=== PATIENT | female | born 1970 | race Caucasian/White ===

== ENCOUNTER 2024-04-11 12:27 | Emergency (ER) | payer OTHER, SELFPAY ==
[2024-04-11 12:29] VITALS: BP 182/119
[2024-04-11 13:10] LABS: % Basophils 1.1 % (0-2); % Eosinophils 3.1 % (0-6); % Immature Granulocytes 0.2 % (0-0.5); % Lymphocytes 26.6 % (20.5-51.1); % Monocytes 7.4 % (1.7-9.3); % Neutrophils 61.6 % (42.2-75.2); Absolute Basophils 0.1 10^3/uL (0-0.2); Absolute Eosinophils 0.2 10^3/uL (0-0.7); Absolute Lymphocytes 1.4 10^3/uL (1.2-3.4); Absolute Monocytes 0.4 10^3/uL (0.1-0.6); Absolute Neutrophils 3.3 10^3/uL (1.4-6.5); Hematocrit 39.1 % (37.0-47.0); Hemoglobin 13.6 g/dL (12.0-16.0); Mean Corp Hgb Conc. 34.8 g/dL (33.0-37.0); Mean Corpuscular Volume 94.9 fL (81.0-99.0); Mean Platelet Volume 10.7 fL (7.4-10.4); Nucleated Red Blood Cells % 0 %; Platelet Count 219 10^3/uL (130-400); Red Blood Cell Count 4.12 10^6/uL (4.20-5.40); White Blood Cell Count 5.4 10^3/uL (4.8-10.8)
[2024-04-11 13:25] LABS: ALT (SGPT) 52 U/L (0-35); AST (SGOT) 44 U/L (14-36); Albumin 4.7 g/dl (3.5-5.0); Alkaline Phosphatase 78 U/L (38-126); Blood Urea Nitrogen 11 mg/dl (7-17); Calcium 10.1 mg/dl (8.4-10.2); Carbon Dioxide 29 mmol/L (22-30); Chloride 101 mmol/L (98-107); Glucose 157 mg/dl (70-99); Potassium 3.7 mmol/L (3.5-5.1); Sodium 140 mmol/L (135-145); Total Bilirubin 0.6 mg/dl (0.2-1.3); Total Protein 7.7 g/dl (6.3-8.2); eGFR > 60.00
[2024-04-11 13:35] LABS: Troponin I < 0.012 ng/ml
--- NOTE | 2024-04-11 16:13 | ED.GENMED ---
History of Present Illness
General
Chief Complaint: Breathing Problem
Time Seen by Provider: 04/11/24 15:47
Travel History
Have you had any contact with someone who has COVID-19?: No
Do you have any symptoms of coronavirus? Fever > 100 degrees, chills, cough, shortness of breath, sore throat, loss of taste or smell, muscle aches, or headache?: No
History of Present Illness
History of Present Illness:
53-year-old female with prior history of PE no longer on anticoagulants presents to the emergency department for evaluation of dizziness and extremity tingling/cool sensation ongoing for the past 2 to 3 days. She states she wakes up each day
feeling fine but the symptoms developed later in the day. She does wonder whether she could have issues with allergies given that new grass with hay was laid down outside of her home. She denies any nasal congestion but does report a headache and
left ear pain. Denies any coughing or chest pain. No fevers but has not had occasional sweats. No abnormal weight changes, nausea, or vomiting.
Past History
Past History
ED Past Medical History: Other (Single left upper lobe pulmonary embolus diagnosed on 07/29/2011)
Social History
Tobacco: Non-smoker
Alcohol: Occasional
Personal:
Family History
Family History: Negative Diabetes, Hypertension or CAD
Review of Systems
Review of Systems
Allergies reviewed?: Yes
All Other Systems: ROS reviewed and negative except as documented in HPI and ROS
Phy Exam
Physical Exam
Physical Exam:
GEN: Well appearing, NAD, WDWN
Eyes: PERRLA, EOMs intact, no scleral icterus
HENT: NCAT, oral mucosa moist
Lungs: CTAB, no wheezes, rales, rhonchi, normal chest wall excursion
Cardiac: RRR, no M/R/G, no peripheral edema. Radial pulses 2+ bilat
Abdomen: S, NT, ND, NABS, no masses or hepatosplenomegaly
Neuro: AO x 3, cranial nerves II through XII grossly intact, moves all extremities freely
MSK: No gross deformity or ecchymosis. No edema. No digital clubbing
Skin: No rashes, petechiae. Normal color, no pallor or jaundice.
Psych: Calm, cooperative, proper hygiene
Scores
Heart Failure Risk
Heart Failure Risk Score: Not Applicable
Course
Orders/Labs/Results
Orders:
Orders
04/11/24 12:32
ECG [Electrocardiogram (*1)] Urgent
Reason for Study: Vertigo / Dizzy
04/11/24 12:33
EKG- Treatment ONCE
04/11/24 12:59
Complete Blood Count/With Diff Urgent
Comprehensive Metabolic Panel Urgent
D-Dimer Urgent
Lyme Progressive Urgent
Comment: ADD ON
TSH Reflex To Free T4 Urgent
Comment: ADD
Troponin I Urgent
04/11/24 16:08
Add On- LAB Urgent
Tests Added?: TSH w reflex
04/11/24 16:42
Urinalysis Reflex To Culture Urgent
Date Specimen was Collected: 04/11/24
Time Specimen was Collected: 16:41
Urine Microscopic Reflex Cult Urgent
Urine Culture Urgent
LUBNA Source: U
Specimen Description:
Date Specimen was Collected: 04/11/24
Time Specimen was Collected: 16:41
04/11/24 17:09
Add On- LAB Urgent
Tests Added?: lyme progressive
Abnormal Lab Results
04/11/24 04/11/24
12:59 16:42
RBC 4.12 L 10^6/uL
(4.20-5.40)
MCH 33.0 H pg
(27.0-31.0)
MPV 10.7 H fL
(7.4-10.4)
Glucose 157 H mg/dl
(70-99)
AST 44 H U/L
(14-36)
ALT 52 H U/L
(0-35)
Leukocyte Esterase Rfl 1+ A
(Negative)
04/11/24 12:59
04/11/24 12:59
Vital Signs
Initial and Last Documented VS:
Initial Vital Signs
Temp Pulse Resp BP Pulse Ox
98.0 F 116 20 182/119 97
04/11/24 12:29 04/11/24 12:29 04/11/24 12:29 04/11/24 12:29 04/11/24 12:29
Last Documented Vital Signs
Temp Pulse Resp BP Pulse Ox
98.0 F 86 16 141/92 96
04/11/24 12:29 04/11/24 16:40 04/11/24 16:40 04/11/24 16:40 04/11/24 16:40
MDM/Problems Addressed
MDM/Problems Addressed:
Patient presents with quite vague symptoms, certainly could be allergic sinusitis given her reports of left ear pain and upper tooth pain, no fevers or purulent rhinorrhea to suggest acute bacterial rhinosinusitis. No focal neurologic deficits
suggestive of intracranial pathology warranting CT of the head. Will start the patient on a methylprednisolone taper dose for potential sinusitis, Lyme titers are pending
Comment
Comment:
EKG independently interpreted by me shows a normal sinus rhythm at a rate of [address] changes concerning for ischemia, QTc of 430
*Critical Care Note
Total Time (30-74mins, 75-104mins- exclusive of procedures): Not Applicable
ED Attending Note
-
Portions of this chart may have been created with voice recognition software.� Occasional wrong word or��sound alike� substitutions may have occurred due to the inherent limitations of voice recognition software.
Discharge Plan
Departure
Patient Disposition: Home (Routine Discharge)
Date of Disposition: 04/11/24
Time of Disposition: 17:27
Patient with high blood pressure during this ER visit?: No
Discharge Problem:
Dizziness
Instructions: Dizziness, Adult ED
Prescriptions:
New
methylprednisolone [Medrol (Aris)] 4 mg tablets,dose pack
See Rx Instructions .ROUTE .COMPLEX Qty: 21 0RF
Rx Instructions:
orally per package directions
No Action
warfarin [Jantoven] 5 MG tablet
5 mg PO DAILY
enoxaparin 100 MG/ML syringe
90 mg SC DAILY
alprazolam 0.25 MG tablet
0.25 mg PO Q8HPRN PRN (Reason: severe anxiety) Qty: 10 0RF
Referrals:
NONE,* [Family Provider] -
Activity Restrictions/Additional Instructions:
Try taking over the counter cetirizine (Zyrtec) or Marge once to twice daily for 1-2 weeks for your allergy symptoms
Interventions
Interventions:
*ED COVID-19 Vaccine History Last Done: 04/11/24 12:29
*Nursing Disposition Last Done: 04/11/24 18:25
ED- Cardiac Assessment Last Done: 04/11/24 17:18
ED- Pulmonary Assessment Last Done: 04/11/24 17:18
Discharge Date and Time
Discharge Date/Time: 04/11/24 18:25
Print Language: SYRIAC
[2024-04-11 16:40] VITALS: BP 141/92
[2024-04-11 17:07] LABS: Urine Albumin Negative (Neg - Trace); Urine Bilirubin Negative (Negative); Urine Character Clear (Clear); Urine Color Straw; Urine Glucose Negative (Negative); Urine Ketone Negative (Negative); Urine Leukocyte 1+ (Negative); Urine Nitrite Negative (Negative); Urine Occult Blood Negative (Negative); Urine Specific Gravity 1.015 (<1.030); Urine Urobilinogen Negative (Neg - 1+)
[2024-04-11 17:17] LABS: Urine Red Blood Cell 0-2 /HPF (0-2); Urine White Cell 0-2 /HPF (0-5)
[2024-04-12 14:33] LABS: Lyme Antibody Screen, EIA Negative (Negative)
== END 2024-04-11 18:25 | disposition home or self-care (01) ==
LOC: EMR 12:27
PROVIDERS: Physician Assistant; Registered Nurse; EMERGENCY PHYSICIAN Student in an Organized Health Care Education/Training Program
DX: R42 Dizziness and giddiness (principal); R20.2 Paresthesia of skin; H92.02 Otalgia, left ear; R51.9 Headache, unspecified; K08.89 Other specified disorders of teeth and supporting structures; Z86.711 Personal history of pulmonary embolism; Z91.018 Allergy to other foods; Z91.010 Allergy to peanuts; Z88.0 Allergy status to penicillin
CPT/HCPCS: 99283; 80053; 81003; 81015; 84443; 84484; 85025; 85379; 86618; 87086; 93005

== ENCOUNTER 2025-07-02 14:12 | Emergency (ER) | payer OTHER, SELFPAY ==
[2025-07-02 14:22] VITALS: BP 171/127
[2025-07-02 14:48] LABS: Hematocrit 40.1 % (37.0-47.0); Hemoglobin 13.6 g/dL (12.0-16.0); Mean Corp Hgb Conc. 33.9 g/dL (33.0-37.0); Mean Corpuscular Volume 96.4 fL (81.0-99.0); Nucleated Red Blood Cells % 0 %; Platelet Count 200 10^3/uL (130-400); Red Cell Dist. Width 11.9 % (11.5-14.5)
[2025-07-02 14:58] LABS: ALT (SGPT) 44 U/L (0-35); AST (SGOT) 37 U/L (14-36); Albumin 4.9 g/dl (3.5-5.0); Alkaline Phosphatase 87 U/L (38-126); Blood Urea Nitrogen 10 mg/dl (7-17); Calcium 9.8 mg/dl (8.4-10.2); Carbon Dioxide 27 mmol/L (22-30); Chloride 104 mmol/L (98-107); Glucose 123 mg/dl (70-99); Potassium 4.3 mmol/L (3.5-5.1); Sodium 139 mmol/L (135-145); Total Protein 8.0 g/dl (6.3-8.2); eGFR > 60.00
[2025-07-02 15:09] LABS: Troponin I < 0.012 ng/ml
--- NOTE | 2025-07-02 16:01 | ED.GENMED ---
History of Present Illness
General
Chief Complaint: Throat Problem
Source: patient
Exam Limitations: none
Time Seen by Provider: 07/02/25 15:30
Nursing documentation reviewed up to this point in time: agreed with
History of Present Illness
History of Present Illness:
Patient to ED with complaint of nasal congestion, bilateral ear pain, dizziness, bad taste in mouth. Symtpoms started over the past week but continue to worsen. SHe did a telehealth visit 1 week ago and prescribed doxycycline but she only took 1
dose and stopped. SHe states she has many allergies and is afraid of having an allergic reaction. No prior history of reactioin to doxy. To ED accompanied by daughter. Made an appt with oral surgeon for evvaluation of her bottom wisdom teeth
thinking that this may be causing her problems. Cancelled appt and came here.
Past History
Past History
ED Past Medical History: Other (Single left upper lobe pulmonary embolus diagnosed on 07/29/2011)
Social History
Tobacco: Non-smoker
Alcohol: Occasional
Personal:
Family History
Family History: Negative Diabetes, Hypertension or CAD
Review of Systems
Review of Systems
Allergies reviewed?: Yes
All Other Systems: ROS reviewed and negative except as documented in HPI and ROS
Constitutional: Reports no symptoms
EENT: Reports runny nose and other (ear pain, nasal congestion)
Respiratory: Reports no symptoms
Cardiac: Reports chest pain (intermittent )
: Reports no symptoms
Musculoskeletal: Reports no symptoms
Skin: Reports no symptoms
Neurological: Reports dizzy
Psychiatric: Reports no symptoms
Phy Exam
General Physical Exam
General Presentation: well appearing and no apparent distress
General age: appears stated age
General Skin: warm and dry
General Habitus: normal
General Mental: alert
General Hydration: appears well hydrated
ENT Exam
ENT Exam: EOMI, TM's normal, pharynx normal, neck supple, swallowing well and other (Uvula midline, no swelling. No stridor. No dental pain. no evidence of dental abscess.)
Cardiovascular Exam
Cardiovascular Exam: regular rate/rhythm and no edema
Pulmonary Exam
Pulmonary Exam: lungs clear and no respiratory distress
Neurological Exam
Neurological Exam: alert, oriented x3, CN II-XII intact and speech normal
Musculoskeletal Exam
Musculoskeletal Exam: full ROM
Skin Exam
Skin Exam: normal color, warm/dry and no rash
Psychiatric Exam
Psychiatric Exam: normal mood/affect
Course
Orders/Labs/Results
Orders:
Orders
07/02/25 14:27
Electrocardiogram (*1) Urgent
Reason for Study: Fatigue / Weakness
EKG- Treatment ONCE
07/02/25 14:34
Complete Blood Count/With Diff Urgent
Comprehensive Metabolic Panel Urgent
Troponin I Urgent
07/02/25 15:56
Doxycycline [Vibramycin] 100 mg PO NOW STA
Abnormal Lab Results
07/02/25
14:34
RBC 4.16 L 10^6/uL
(4.20-5.40)
MCH 32.7 H pg
(27.0-31.0)
MPV 10.6 H fL
(7.4-10.4)
Glucose 123 H mg/dl
(70-99)
AST 37 H U/L
(14-36)
ALT 44 H U/L
(0-35)
07/02/25 14:34
07/02/25 14:34
Vital Signs
Initial and Last Documented VS:
Initial Vital Signs
Temp Pulse Resp BP Pulse Ox
98.7 F 106 20 171/127 96
07/02/25 14:22 07/02/25 14:22 07/02/25 14:22 07/02/25 14:22 07/02/25 14:22
Last Documented Vital Signs
Temp Pulse Resp BP Pulse Ox
98.7 F 106 20 171/127 96
07/02/25 14:22 07/02/25 14:22 07/02/25 14:22 07/02/25 14:22 07/02/25 16:08
*Pulse Oximetry
SaO2: 96
Oxygen Mode of Delivery: Room air
Patient hypoxic: no
*Critical Care Note
Total Time (30-74mins, 75-104mins- exclusive of procedures): Not Applicable
Update Note
Update Note:
Patient to ED with complaint of dizziness, nasal congestion, bilateral ear pain, bilateral lower wisdom tooth pain x 1 week. VSS, she remains afebrile. Labs reviewed, no concerning results. Concern for sinusitis on physical exam. Will try course
of doxycyline, nasacort. Instructed to finish out prescriptiosn. She will follow up with PCP. Given instructins on s/s to return to ED and she is agreeable to plan.
ED Attending Note
-
Portions of this chart may have been created with voice recognition software.� Occasional wrong word or��sound alike� substitutions may have occurred due to the inherent limitations of voice recognition software.
Discharge Plan
Departure
Patient Disposition: Home (Routine Discharge)
Date of Disposition: 07/02/25
Time of Disposition: 15:57
Patient with high blood pressure during this ER visit?: No
Condition: Good
Covid-19: Not Applicable
Discharge Problem:
Acute sinusitis
Instructions: Sinusitis in adults - ED discharge instructions
Prescriptions:
New
doxycycline hyclate 100 mg capsule
100 mg PO BID Qty: 20 0RF
triamcinolone acetonide [Nasacort] 55 mcg aerosol,spray
1 spray intranasal DAILY Qty: 16.9 0RF
No Action
warfarin [Jantoven] 5 MG tablet
5 mg PO DAILY
enoxaparin 100 MG/ML syringe
90 mg SC DAILY
alprazolam 0.25 MG tablet
0.25 mg PO Q8HPRN PRN (Reason: severe anxiety) Qty: 10 0RF
methylprednisolone [Medrol (Aris)] 4 mg tablets,dose pack
See Rx Instructions .ROUTE .COMPLEX Qty: 21 0RF
Rx Instructions:
orally per package directions
Activity Restrictions/Additional Instructions:
Follow up with your family doctor.
Interventions
Interventions:
*Risk Screen - Suicide Last Done: 07/02/25 14:22
*General Assessment Last Done: 07/02/25 14:22
*Neglect/Abuse Screening Last Done: 07/02/25 15:54
*Nursing Disposition Last Done: 07/02/25 16:09
ED-EENT Assessment Last Done: 07/02/25 15:53
ED- Pulmonary Assessment Last Done: 07/02/25 15:52
Discharge Date and Time
Discharge Date/Time: 07/02/25 16:09
Print Language: GABONESE
[2025-07-02] MEDS: VIBRAMYCIN 100 MG PO (16:02)
== END 2025-07-02 16:09 | disposition home or self-care (01) ==
LOC: EMR 14:12
PROVIDERS: EMERGENCY PHYSICIAN Emergency Medicine
DX: J01.90 Acute sinusitis, unspecified (principal); T36.4X6A Underdosing of tetracyclines, initial encounter; Z91.128 Patient's intentional underdosing of medication regimen for other reason; Z86.711 Personal history of pulmonary embolism
CPT/HCPCS: 99284; 80053; 84484; 85025; 93005